=== PATIENT | female | born 1970 | race Caucasian/White ===

== ENCOUNTER 2017-02-16 08:13 | Emergency (ER) | payer OTHER ==
[2017-02-16 08:27] VITALS: BP 138/81
[2017-02-16] MEDS ORDERED: Ketorolac INJ* 30 MG/ML 1 ML VIAL IM ONE (08:42)
--- NOTE | 2017-02-16 08:42 | UC ---
Throat Pain/Nasal Tyrel HPI - HPI Summary HPI Summary: states she had sinus surgery 02/[address] Quintero, c/o throbbing pain to right side of nose that radiates through right side of face. Was supposed to see Dr Quintero yesterday but was not feeling well enough to go in, has used all percocets prescribed post-op. Called yesterday and described symptoms, Dr Chun office called in prednisone but pt states she cannot take it because its makes her "jittery" Has had more right sided maxillary sinus pressure and pain and its moving in to the frontal sinus like a previous sinus infection. [ End ] - History of Current Complaint Chief Complaint: UCRespiratory Stated Complaint: SINUS HEADACHE NECK PAIN Time Seen by Provider: 02/16/17 08:33 Hx Obtained From: Patient Hx Last Menstrual Period: HAD THE NOVASURE PROCEDURE IN 2012. DOES NOT HAVE PSERIODS ?: No Onset/Duration: Sudden Onset - Allergies/Home Medications Allergies/Adverse Reactions: Allergies Allergy/AdvReac Type Severity Reaction Status Date / Time Clindamycin Allergy Rash Verified 02/16/17 08:27 Quetiapine [From Seroquel] Allergy See Comment Verified 02/16/17 08:27 Diphenhydramine AdvReac Severe Palpitation Verified 02/16/17 08:27 [From Benadryl] s Ibuprofen [From Motrin] AdvReac sick to Verified 02/16/17 08:27 stomach Naproxen AdvReac Nausea Verified 02/16/17 08:27 Tramadol AdvReac sick to Verified 02/16/17 08:27 stomach steroids AdvReac Anxiety Uncoded 02/16/17 08:27 PMH/Surg Hx/FS Hx/Imm Hx Previously Healthy: Yes - Surgical History Surgical History: Yes Surgery Procedure, Year, and Place: Novasure 10/2012. tonsillectomy 04/2012. CHOLECYSTECTOMY--2016. Sinus sx-2017 - Family History Known Family History: Positive: Hypertension - Social History Lives: With Family Alcohol Use: None Substance Use Type: None Smoking Status (MU): Current Every Day Smoker Type: Cigarettes Amount Used/How Often: 4 CIGS PER DAY Length of Time of Smoking/Using Tobacco: OVER 20 YRS Have You Smoked in the Last Year: Yes When Did the Patient Quit Smoking/Using Tobacco: APPROX 1 MO. Cessation Counseling: Patient Advised to Stop Review of Systems Constitutional: Fever, Chills Skin: Negative Eyes: Negative ENT: Sinus Congestion, Sinus Pain/Tenderness Respiratory: Negative Cardiovascular: Negative Gastrointestinal: Negative Genitourinary: Negative Motor: Negative Neurovascular: Negative Musculoskeletal: Negative Neurological: Negative Psychological: Negative All Other Systems Reviewed And Are Negative: Yes Physical Exam Triage Information Reviewed: Yes Appearance: Well-Appearing, Well-Nourished, Pain Distress - mild Vital Signs: Initial Vital Signs Temp 99.8 F 02/16/17 08:15 Pulse 72 02/16/17 08:15 Resp 18 02/16/17 08:15 BP 138/81 02/16/17 08:15 Pulse Ox 100 02/16/17 08:15 Vital Signs Reviewed: Yes Eye Exam: Normal ENT Exam: Normal ENT: Positive: Other: - right maxillary sinus pressure and swelling as well as some mild frontal sinus pressure tenderness to palpation. Negative: Nasal drainage, Tonsillar swelling, Tonsillar exudate Dental Exam: Normal Neck exam: Normal Neck: Positive: 1 Respiratory Exam: Normal Cardiovascular Exam: Normal Musculoskeletal Exam: Normal Neurological Exam: Normal Psychological Exam: Normal Skin Exam: Normal Re-Evaluation - Re-Evaluation First Eval Change: Improved Throat Pain/Nasal Course/Dx - Course Course Of Treatment: advised to call Dr Quintero for re eval / pain meds. given toradol at this time as she is out of percocets. we will not give refill needs to come from surgeon. with the increased pain , swelling, patient self reported fever with feeling like one of her typical sinus infections will start amox and she will call brien to confirm plan of action for her . stop smoking ! - Differential Dx/Diagnosis Provider Diagnoses: sinus pain s/p surgery with sinusitis Discharge - Discharge Plan Condition: Good Disposition: HOME Prescriptions: Amoxicillin PO (*) [Amoxicillin 875 MG (*)] 875 mg PO BID #14 tab Patient Education Materials: Sinusitis (ED) Referrals: No Primary Care Phys,NOPCP [Primary Care Provider] - 3 Days (f/u with Dr Quintero as he performed your surgery) Additional Instructions: As we discussed please call Dr Quintero for follow up and potential medication for pain relief. Please stop smoking . We hope your feel better!
== END 2017-02-16 09:11 | disposition home or self-care (01) ==
LOC: UCCORT 08:13
DX: J34.89 Other specified disorders of nose and nasal sinuses (principal); Z98.890 Other specified postprocedural states; J32.9 Chronic sinusitis, unspecified; Z88.1 Allergy status to other antibiotic agents; Z88.6 Allergy status to analgesic agent; Z88.5 Allergy status to narcotic agent; Z90.49 Acquired absence of other specified parts of digestive tract; F17.210 Nicotine dependence, cigarettes, uncomplicated
CPT/HCPCS: 96372; 99212; G0463; J1885

== ENCOUNTER 2017-11-24 19:17 | Emergency (ER) | payer OTHER | END 2017-11-24 19:50 | disposition left against medical advice (07) | LOC: UCCORT 19:17 | DX: R51 Headache (principal); Z53.21 Procedure and treatment not carried out due to patient leaving prior to being seen by health care provider ==

== ENCOUNTER 2018-05-20 13:21 | Emergency (ER) | payer OTHER ==
--- NOTE | 2018-05-20 14:13 | UC ---
Psychiatric Complaint HPI - HPI Summary HPI Summary: Patient is 47 year old woman with significant past medical history of anxiety who has been under treatment with [facility] for past 4-5 years presents today with significant anxiety/agitation which have been getting worse over the past week. She does take Zoloft which she took today(in a prior interview with my colleague today, she reports taking gabapentin). She has not been seen at the mental health since February and attempted to go back to mental health but due to paperwork has been unable to be seen yet. Has an upcoming appointment with anila davis (therapist). For past week has been jittery and anxious. States has quit smoking in the past couple weeks which may be contributing to symptoms. She also reports that her mother is being taken to a facility in [facility] due to her Alzheimer's she might not see her again and is one of the reasons of her anxiety as well. It's significant enough that she is not able to do do her day- to-day activities. She is crying and tearful in the exam room asks for help to make her feel better. She lives alone in an apartment in [place] and arrived today to the urgent care in a cab. She denies any suicidal or homicidal ideations Denies any fever, chills, cough chest pain or shortness of breath . Denies any abdominal pain , nausea or vomiting , diarrhea or constipation. - History Of Current Complaint Chief Complaint: UCGeneralIllness Stated Complaint: ANXIETY Time Seen by Provider: 05/20/18 13:52 Hx Obtained From: Patient Hx Last Menstrual Period: unknown, uterine ablation - Allergies/Home Medications Allergies/Adverse Reactions: Allergies Allergy/AdvReac Type Severity Reaction Status Date / Time clindamycin Allergy Rash Verified 05/20/18 13:42 diphenhydramine Allergy Palpitation Verified 05/20/18 13:42 [From Benadryl] s quetiapine [From Seroquel] Allergy See Comment Verified 05/20/18 13:42 tramadol Allergy GI Upset Verified 05/20/18 13:42 ibuprofen AdvReac GI Upset Verified 05/20/18 13:42 naproxen AdvReac Nausea Verified 05/20/18 13:42 steroid AdvReac Anxiety Uncoded 05/20/18 13:42 steroids AdvReac Anxiety Uncoded 02/16/17 08:27 Home Medications: Home Medications Gabapentin CAP(*) [Neurontin 300 CAP(*)] 300 mg PO TID PRN 05/20/18 [History Confirmed 05/20/18] Omeprazole CAP* [Prilosec CAP* 20 MG] 20 mg PO DAILY 05/20/18 [History Confirmed 05/20/18] hydrOXYzine HCL TAB* [Atarax 25 MG TAB*] 25 mg PO TID PRN 05/20/18 [History Confirmed 05/20/18] PMH/Surg Hx/FS Hx/Imm Hx Previously Healthy: Yes Other Endocrine History: negative Cardiovascular History: Hypertension Other Cardiovascular History: negative Other Respiratory History: negative GI/ History: Gastroesophageal Reflux Other GI/ History: negative Neurological History: Other - Trigeminal neuralgia Other Neurological History: negative Psychological History: Anxiety, Depression - Surgical History Surgical History: Yes Surgery Procedure, Year, and Place: Novasure 10/2012. tonsillectomy 04/2012. CHOLECYSTECTOMY--2015. Sinus sx-2016 - Family History Known Family History: Positive: Hypertension - Social History Alcohol Use: None Substance Use Type: None Smoking Status (MU): Smoker, Current Status Unknown Type: Cigarettes Amount Used/How Often: 4 CIGS PER DAY Length of Time of Smoking/Using Tobacco: OVER 20 YRS Have You Smoked in the Last Year: Yes When Did the Patient Quit Smoking/Using Tobacco: APPROX 1 MO. Review of Systems Constitutional: Negative Skin: Negative Eyes: Negative ENT: Negative Respiratory: Negative Cardiovascular: Negative Gastrointestinal: Negative Genitourinary: Negative Motor: Negative Neurovascular: Negative Musculoskeletal: Negative Neurological: Negative Psychological: Anxious, Other - Agitated Is Patient Immunocompromised?: No All Other Systems Reviewed And Are Negative: Yes Physical Exam - Summary Physical Exam Summary: Physical Exam: Const: Appears very anxious, crying and tearful . Alert and oriented x 3. Musculo: Walks with a normal gait. Head/Face: Atraumatic, normocephalic on inspection. Eyes: EOMI and PERRLA in both eyes. Conjunctivae clear. No discharge noted ENT: Hearing normal, TM normal appearing bilaterally . Respiratory: Respirations are unlabored. Lungs clear to auscultation bilaterally, no wheezing , rhonchi or rales noted . CVS: Regular rate and Rhythm, S1S2 normal , no murmurs identified. Extremities: Peripheral circulation is grossly normal. Pulses 2+ Abdomen : Soft non tender , nondistended Skin: No lesions or rash located on the upper extremities or on the lower extremities. Neuro: Cranial nerves II to XII intact, motor and sensory intact. DTR Intact bilaterally. Mood is normal. Affect is normal. GCS-15 Triage Information Reviewed: Yes Vital Signs: Initial Vital Signs Temp 98.2 F 05/20/18 13:31 Pulse 94 05/20/18 13:31 Resp 18 05/20/18 13:31 BP 181/88 05/20/18 13:31 Pulse Ox 100 05/20/18 13:31 Vital Signs Reviewed: Yes Psych Complaint Course/Dx - Course Course Of Treatment: During the visit ,She was initially evaluated by my colleague today after which I evaluated her as well. Given her current symptoms with significant anxiety and inability to control we discussed that she should be evaluated with definitive management at the hospital and she is agreeable to going to the ER in an ambulance . She was given 1 mg of clonazepam. urgent care. EMS was called and reported was called to the emergency room at [facility] (she does not want to go to [facility] if cause of her experience in the past with the ER provider ). Patient expressed understanding. Her vitals were stable at the time of transfer - Differential Dx/Diagnosis Provider Diagnoses: Anxiety. Panic disorder Discharge - Sign-Out/Discharge Documenting (check all that apply): Patient Departure All imaging exams completed and their final reports reviewed: No Studies - Discharge Plan Condition: Stable Disposition: TRANS HIGHER LVL OF CARE FAC Patient Education Materials: Generalized Anxiety Disorder (ED) Referrals: Nohemi Ross MD [Primary Care Provider] - Additional Instructions: I had a discussion with her in detail and it's recommended that she be seen in ER for further evaluation and management. She is agreeable with the plan. We called the EMS and she will be transferred in the ambulance. Report was called to the ER. - Billing Disposition and Condition Condition: STABLE Disposition: Trans Higher Lvl of Care Fac
[2018-05-20 14:18] VITALS: BP 172/93
[2018-05-20] MEDS ORDERED: CLONAZEPAM 0.5 MG PO ONE (14:24)
[2018-05-20] MEDS ORDERED: LORazepam TAB(*) 1 MG PO ONE (14:27)
[2018-05-20] MEDS ORDERED: LORazepam TAB(*) 1 MG ONE (14:28)
--- NOTE | 2018-05-20 15:19 | UC ---
Psychiatric Complaint HPI - HPI Summary HPI Summary: Pt presents with c/o of acute exacerbation of anxiety. Pt has a history of generalized anxiety disorder and depression has been following with [facility] but has not been seen since february. Pt has been taking gabapentin for her anxiety with no improvement and worsening of condition over the last week. Pt is tearful and highly agitated at time of exam. Pt reports that she does not have good support system in place in area and feels she is unable to take care of herself. P denies suicidal ideation or desire to harm another. - History Of Current Complaint Chief Complaint: UCGeneralIllness Stated Complaint: ANXIETY Time Seen by Provider: 05/20/18 13:52 Hx Obtained From: Patient Hx Last Menstrual Period: unknown, uterine ablation ?: No Onset/Duration: Gradual Onset, Lasting Weeks, Still Present, Worse Since Timing: Constant Severity Initially: Mild Severity Currently: Severe Character: Depressed, Anxious Aggravating Factor(s): Recent Stress Alleviating Factor(s): Medication, Counseling Associated Signs And Symptoms: Sleep Disturbance, Social Isolation Related History: Positive For: Prior Psychiatric Issues - Risk Factor(s) Completed Suicide Risk Factors: White [place], Living Alone - Allergies/Home Medications Allergies/Adverse Reactions: Allergies Allergy/AdvReac Type Severity Reaction Status Date / Time clindamycin Allergy Rash Verified 05/20/18 13:42 diphenhydramine Allergy Palpitation Verified 05/20/18 13:42 [From Benadryl] s quetiapine [From Seroquel] Allergy See Comment Verified 05/20/18 13:42 tramadol Allergy GI Upset Verified 05/20/18 13:42 ibuprofen AdvReac GI Upset Verified 05/20/18 13:42 naproxen AdvReac Nausea Verified 05/20/18 13:42 steroid AdvReac Anxiety Uncoded 05/20/18 13:42 steroids AdvReac Anxiety Uncoded 02/16/17 08:27 Home Medications: Home Medications Gabapentin CAP(*) [Neurontin 300 CAP(*)] 300 mg PO TID PRN 05/20/18 [History Confirmed 05/20/18] Omeprazole CAP* [Prilosec CAP* 20 MG] 20 mg PO DAILY 05/20/18 [History Confirmed 05/20/18] hydrOXYzine HCL TAB* [Atarax 25 MG TAB*] 25 mg PO TID PRN 05/20/18 [History Confirmed 05/20/18] PMH/Surg Hx/FS Hx/Imm Hx Previously Healthy: Yes Psychological History: Anxiety, Depression - Surgical History Surgical History: Yes Surgery Procedure, Year, and Place: Novasure 10/2012. tonsillectomy 04/2012. CHOLECYSTECTOMY--2015. Sinus sx-2017 - Family History Known Family History: Positive: Hypertension - Social History Occupation: Disabled Lives: With Family Alcohol Use: None Substance Use Type: None Smoking Status (MU): Smoker, Current Status Unknown Type: Cigarettes Amount Used/How Often: 4 CIGS PER DAY Length of Time of Smoking/Using Tobacco: OVER 20 YRS Have You Smoked in the Last Year: Yes When Did the Patient Quit Smoking/Using Tobacco: APPROX 1 MO. Review of Systems Constitutional: Other - anxious Skin: Negative Eyes: Negative ENT: Negative Respiratory: Negative Cardiovascular: Palpitations Gastrointestinal: Negative Genitourinary: Negative Motor: Negative Neurovascular: Negative Musculoskeletal: Myalgia Neurological: Negative Psychological: Anxious, Depressed Is Patient Immunocompromised?: No All Other Systems Reviewed And Are Negative: Yes Physical Exam Triage Information Reviewed: Yes Appearance: Well-Nourished, Other: - well dressed, good hygiene, anxious, tearful. fidgety Vital Signs: Initial Vital Signs Temp 98.2 F 05/20/18 13:31 Pulse 94 05/20/18 13:31 Resp 18 05/20/18 13:31 BP 181/88 05/20/18 13:31 Pulse Ox 100 05/20/18 13:31 Vital Signs Reviewed: Yes Eye Exam: Normal ENT Exam: Normal Dental Exam: Normal Neck exam: Normal Respiratory Exam: Normal Cardiovascular: Positive: Tachycardia Abdominal Exam: Normal Musculoskeletal Exam: Normal Neurological: Positive: Alert Psychological: Positive: Inconsolable, Other: - anxious Skin Exam: Normal Psych Complaint Course/Dx - Course Course Of Treatment: I presented my assessment and plan with DR. wyman. Dr. Wyman then went and did his own assessment and plan of care for pt in agreeance with mine. Pt agreed to be transferred to [facility] by ambulance. Pt refused to go to [facility] due to prior poor experience with ER provider. - Differential Dx/Diagnosis Differential Diagnosis/HQI/PQRI: Anxiety, Depression Provider Diagnoses: Anxiety-acute exacerbation Discharge - Sign-Out/Discharge Documenting (check all that apply): Patient Departure All imaging exams completed and their final reports reviewed: No Studies - Discharge Plan Condition: Stable Disposition: ADMITTED TO [facility] Patient Education Materials: Generalized Anxiety Disorder (ED) Referrals: Nohemi Ross MD [Primary Care Provider] - Additional Instructions: This year I had a discussion with her in detail and it's recommended that she be seen in ER for further evaluation and management. She is agreeable with the plan. We called the EMS and she will be transferred in the ambulance. Report was called to the ER. - Billing Disposition and Condition Condition: STABLE Disposition: Admitted to [facility]
== END 2018-05-20 14:41 | disposition short-term general hospital (02) ==
LOC: UCCORT 13:21
DX: F41.0 Panic disorder [episodic paroxysmal anxiety] (principal); I10 Essential (primary) hypertension; F17.210 Nicotine dependence, cigarettes, uncomplicated; Z88.1 Allergy status to other antibiotic agents; Z88.8 Allergy status to other drugs, medicaments and biological substances; Z88.6 Allergy status to analgesic agent; Z79.899 Other long term (current) drug therapy
CPT/HCPCS: 99213; A9270-GY; G0463

== ENCOUNTER 2018-05-20 15:13 | Emergency (ER) | payer OTHER ==
--- NOTE | 2018-05-20 15:36 | ED ---
Psychiatric Complaint - HPI Summary HPI Summary: The patient is a 47 y/o F presenting to [facility] with a chief complaint of increased anxiety over the last two weeks. She states that the anxiety has been building up and she's been terrified. She has been feeling her heart racing as she's been in a "frenzied panic state." She stopped smoking at the time of onset two weeks ago, although she states that smoking helps calm her down. She doesn't think her medications are helping her at this time, but she notes that Lorazepam was helping her when she was on that. She also states that Ativan helps her. She denies SI. - History Of Current Complaint Chief Complaint: EDPsychosocial Time Seen by Provider: 05/20/18 15:18 Hx Obtained From: Patient Hx Last Menstrual Period: unknown, uterine ablation Onset/Duration: Lasting Weeks - two, Still Present Timing: Constant Severity Initially: Moderate Severity Currently: Severe Character: Anxious Aggravating Factor(s): Nothing Alleviating Factor(s): Nothing Related History: Positive For: Prior Psychiatric Issues - anxiety Has Suicidal: Denies: Thoughts - Allergies/Home Medications Allergies/Adverse Reactions: Allergies Allergy/AdvReac Type Severity Reaction Status Date / Time clindamycin Allergy Rash Verified 05/20/18 13:42 diphenhydramine Allergy Palpitation Verified 05/20/18 13:42 [From Benadryl] s quetiapine [From Seroquel] Allergy See Comment Verified 05/20/18 13:42 tramadol Allergy GI Upset Verified 05/20/18 13:42 ibuprofen AdvReac GI Upset Verified 05/20/18 13:42 naproxen AdvReac Nausea Verified 05/20/18 13:42 steroid AdvReac Anxiety Uncoded 05/20/18 13:42 steroids AdvReac Anxiety Uncoded 02/16/17 08:27 PMH/Surg Hx/FS Hx/Imm Hx Endocrine/Hematology History: Denies: Hx Diabetes, Hx Thyroid Disease Cardiovascular History: Reports: Hx Hypertension Respiratory History: Denies: Hx Asthma, Hx Chronic Obstructive Pulmonary Disease (COPD) GI History: Denies: Hx Ulcer Musculoskeletal History: Denies: Hx Osteoporosis Psychiatric History: Reports: Hx Anxiety - Surgical History Surgery Procedure, Year, and Place: Novasure 10/2012. tonsillectomy 04/2012. CHOLECYSTECTOMY--2015. Sinus sx-2017 - Immunization History Immunizations Up to Date: Yes Infectious Disease History: No Infectious Disease History: Denies: Hx Hepatitis, Hx Human Immunodeficiency Virus (HIV), Traveled Outside the [place] in Last 30 Days - Family History Known Family History: Positive: Hypertension - Social History Alcohol Use: None Substance Use Type: Reports: None Smoking Status (MU): Former Smoker Type: Cigarettes Amount Used/How Often: 4 CIGS PER DAY Length of Time of Smoking/Using Tobacco: OVER 20 YRS Have You Smoked in the Last Year: Yes Review of Systems Positive: Other - fast heart rate Positive: Anxious, Other - NEGATIVE: SI All Other Systems Reviewed And Are Negative: Yes Physical Exam - Summary Physical Exam Summary: Appearance: Well appearing, no pain distress, anxious affect Skin: warm, dry, reflects adequate perfusion Head/face: normal Eyes: EOMI, VILMA ENT: normal Neck: supple, non-tender Respiratory: CTA, breath sounds present Cardiovascular: RRR, pulses symmetrical Abdomen: non-tender, soft Bowel: present Musculoskeletal: normal, strength/ROM intact Neuro: normal, sensory motor intact, A&Ox3 Triage Information Reviewed: Yes Vital Signs On Initial Exam: Initial Vitals Temp Pulse Resp BP Pulse Ox 98 F 94 16 143/88 100 05/20/18 15:18 05/20/18 15:18 05/20/18 15:18 05/20/18 15:18 05/20/18 15:18 Vital Signs Reviewed: Yes Diagnostics - Vital Signs Vital Signs Temp Pulse Resp BP Pulse Ox 05/20/18 15:18 98 F 94 16 143/88 100 - Laboratory Result Diagrams: 05/20/18 15:47 05/20/18 15:47 Lab Statement: Any lab studies that have been ordered have been reviewed, and results considered in the medical decision making process. Course/Dx - Course Course Of Treatment: The patient is a a 47 y/o F presenting to [facility] with a chief complaint of increased anxiety in the last two weeks. She doesn't think that her medications are helping, but she has stopped smoking since onset. Upon exam, the patient has an anxious affect. In the ED course, blood work and UA obtained. Carole Sandhu, mental health aircraft painter apprentice, confirms that the patient is stable enough to go home at [1800]. The patient will be discharged home with a dx of anxiety. She is prescribed Lorazepam and will follow up with her PCP in three days. She understands the need to return to the ED for any new or worsening symptoms. - Differential Dx/Clinical Impression Differential Diagnosis/HQI/PQRI: Positive: Anxiety Provider Diagnosis: Anxiety - Physician Notifications Discussed Care Of Patient With: Carole Sandhu - mental health aircraft painter apprentice Time Discussed With Above Provider: 18:00 Instructed by Provider To: Other - Patient is clinically and mentally stable enough to go home. Discharge - Sign-Out/Discharge Documenting (check all that apply): Patient Departure - Patient will be discharged home. - Discharge Plan Condition: Stable Disposition: HOME Prescriptions: LORazepam TAB(*) [Ativan 0.5 MG TAB (*)] 0.5 mg PO BID #14 tab MDD 2 Patient Education Materials: Anxiety (ED) Referrals: [facility] [Outside] (Please follow up with your scheduled appointment next week) Nohemi Ross MD [Primary Care Provider] - 3 Days Additional Instructions: Please take medication as prescribed. Follow up with your primary care physician in 3 days. Return to the emergency department for any new or worsening symptoms. - Billing Disposition and Condition Condition: STABLE Disposition: Home - Attestation Statements Document Initiated by Scribe: Yes Documenting Scribe: Gisella Alarcon Provider For Whom Sushila is Documenting (Include Credential): Dr. Daniel Hines MD Scribe Attestation: Gisella Cullen scribed for Dr. Daniel Hines MD on 05/20/18 at 1817. Scribe Documentation Reviewed: Yes Provider Attestation: The documentation as recorded by the Gisella michele accurately reflects the service I personally performed and the decisions made by me, Dr. Daniel Hines MD
[2018-05-20 15:57] LABS: ABS Basophils 0.1 10^3/ul (0-0.2); ABS Eosinophils 0 10^3/ul (0-0.6); ABS Lymphocytes 1.5 10^3/ul (1.0-4.8); ABS Monocytes 0.6 10^3/ul (0-0.8); ABS Neutrophils 5.9 10^3/ul (1.5-7.7); ABS Nucleated RBC 0 10^3/ul; Eosinophil % 0.3 % (0-6); Hematocrit 38 % (35-47); Hemoglobin 12.7 g/dl (12.0-16.0); Lymphocyte % 18.1 % (25-47); Mean Corpuscular HGB Conc 33 g/dl (31-36); Mean Corpuscular Hemoglobin 29 pg (27-31); Mean Corpuscular Volume 87 fL (80-97); Mean Platelet Volume 6.9 um3 (7.4-10.4); Nucleated Red Blood Cells % 0.1; Platelet Count 334 10^3/ul (150-450); Red Blood Count 4.37 10^6/ul (4.00-5.40); Red Cell Distribution Width 13 % (10.5-15)
[2018-05-20 16:20] LABS: EGFR Non-African American 69.5 (>60)
[2018-05-20 17:17] LABS: Urine Appearance Clear; Urine Blood Negative (Negative); Urine Color Straw; Urine Ketones Negative (Negative); Urine Protein Negative (Negative); Urine Specific Gravity 1.005 (1.010-1.030); Urine Urobilinogen Negative (Negative)
[2018-05-20 18:03] VITALS: BP 146/86
== END 2018-05-20 18:03 | disposition home or self-care (01) ==
LOC: ED 15:13
DX: F41.9 Anxiety disorder, unspecified (principal); Z88.6 Allergy status to analgesic agent; Z88.1 Allergy status to other antibiotic agents; Z88.5 Allergy status to narcotic agent; Z88.8 Allergy status to other drugs, medicaments and biological substances; Z87.891 Personal history of nicotine dependence
CPT/HCPCS: 36415; 80053; 80307; 80320; 80329; 81003; 84443; 84702; 85025; 99282; G0480

== ENCOUNTER 2024-02-19 10:07 | Inpatient (IN) ==
[2024-02-19 12:34] LABS: Urine Appearance Extra Turbid; Urine Bilirubin Negative (Negative); Urine Blood Negative (Negative); Urine Glucose Negative (Negative); Urine Ketones Negative (Negative); Urine Nitrite Negative (Negative); Urine Protein Trace (Negative); Urine Specific Gravity 1.018 (1.002-1.030); Urine Urobilinogen Negative (Negative); Urine pH 7.5 (5.0-8.0)
[2024-02-19 12:55] LABS: Urine Benzodiazepine Screen None Detected (None Detect); Urine Cannabinoids Screen None Detected (None Detect); Urine Opiates Screen None Detected (None Detect)
[2024-02-19 13:05] LABS: Urine Bacteria Absent /HPF (Absent); Urine Red Blood Cell Absent /HPF (0-Trace); Urine White Blood Cell Trace(0-5/hpf) /HPF (0-Trace)
[2024-02-19 13:06] LABS: Urine Color Yellow
[2024-02-20 09:00] LABS: HDL Cholesterol 62.2 mg/dL
[2024-02-21] MEDS: Nicotine GUM 4MG FRUIT FLAVOR PO PRN (17:20)
[2024-02-21] MEDS: Al Hydrox/Mg Hydrox/Simet LIQ 30 ML UDC PO PRN (18:36)
[2024-02-22 09:53] VITALS: BP 111/71
== END 2024-02-22 11:30 | disposition home or self-care (01) | DRG 897 ==
LOC: ED 10:07 → EDHOLD 14:38 → BSU 15:52 → EDHOLD 15:53 → BSU 17:07
PROVIDERS: ADMIT Psychiatry & Neurology Psychiatry; ATTEND Student in an Organized Health Care Education/Training Program